=== PATIENT | female | born 1980 | race African-American/Black ===

== ENCOUNTER → 2018-06-14 | Outpatient (CLI) | payer OTHER ==
[~2018-06-14] MED LIST: FERROUS SU325 MG/TAB PO; MOTRIN 600600 MG/TAB PO; NORCO 325 MG-51 TAB PO; PRENATAL1 TA1 PO; ZANTAC 150MG T150 MG PO
== END ==
LOC: COL.RAD 09:00
DX: R74.8 Abnormal levels of other serum enzymes (principal)

== ENCOUNTER → 2020-04-10 | Outpatient (CLI) | payer OTHER | LOC: COL.RAD 07:09 | DX: M47.812 Spondylosis without myelopathy or radiculopathy, cervical region (principal); M79.632 Pain in left forearm ==

== ENCOUNTER → 2020-09-20 | Outpatient (CLI) | payer OTHER | LOC: COL.RAD 08:02 | DX: R74.8 Abnormal levels of other serum enzymes (principal) ==

== ENCOUNTER → 2020-10-04 | Outpatient (CLI) | payer OTHER ==
[~2020-10-04] VITALS: Ht 167.6 cm; Wt 65.5 kg
[2020-10-04] VITALS (8 sets, daily range): BP systolic 120–138; BP diastolic 88–101; PULSE 80–91
[~2020-10-04] MED LIST changes: +NORVASC 5MG5 MG/TAB PO; +PRINIVIL40 MG PO
[2020-10-04 13:26] LABS: INR 1.1 (0.8-3.0); PROTHROMBIN TIME 12.7 SECONDS (9.7-12.8)
== END ==
LOC: COL.RAD 12:40
PROVIDERS: Radiology Diagnostic Radiology
DX: R74.8 Abnormal levels of other serum enzymes (principal)

== ENCOUNTER → 2020-11-20 | Outpatient (CLI) | payer OTHER | LOC: MC.RAD 14:30 | DX: Z12.31 Encounter for screening mammogram for malignant neoplasm of breast (principal) ==

== ENCOUNTER 2020-12-20 10:01 | Day surgery (SDC) | payer OTHER ==
[~2020-12-20] VITALS: Ht 165.1 cm; Wt 65.3 kg
[2020-12-20] MEDS ORDERED: ACTIGALL 300MG300 MG PO (10:43)
[2020-12-20 11:06] VITALS: BP 134/96; PULSE 76; TEMP 97.8
[2020-12-20 12:07] VITALS: BP 120/91; PULSE 71
[2020-12-20 12:15] VITALS: BP 112/89; PULSE 71
--- NOTE | 2020-12-20 12:40 | NUR ---
PT RETURNED FROM ENDO PROCEDURE INTO BAY#2. PT ALERT AND ORIENTATED AND SLEEPY. VSS AND AFEBRILE. PT DENIES PAIN OR NAUSEA AT THIS TIME. ZAIDA CONT TO MONITOR.
--- NOTE | 2020-12-20 13:11 | NUR ---
PT ALERT AND ORIENTATED, SLEEPY. LUNGS CLEAR AND DIMINISHED, HRR, BOWEL SOUNDS PRESENT AND HYPOACTIVE. PT STATES, 'HAVE A RUBBER LIKE TASTE IN MY MOUTH'. DR ORDER FOR FLUIDS TO BEGIN AT 1248. GAVE PT WATER TO SWISH AND SPIT. PT EYES CLOSED WITH NO C/O'S. PT AT BEDSIDE. WILL MARY PROGRESS.
[2020-12-20 13:15] VITALS: BP 123/96; PULSE 65
--- NOTE | 2020-12-20 13:34 | NUR ---
PT AWAKE. DENIES NAUSEA. DOES C/O OF CRAMPING AND RATES IT AT A 5 ON A 0-10 SCALE. STATES, 'GORDY HAD THIS PAIN BEFORE, ITS NO DIFFERENT THAN USUAL. REQUESTED GRAPE JUICE AND SPRITE. PT BURPING TO RELIEVE SELF OF AIR. PT DENIES NEED AT THIS TIME, AT PT SIDE, CALL LIGHT IN REACH.
[2020-12-20 13:45] VITALS: BP 127/89; PULSE 81
--- NOTE | 2020-12-20 14:33 | NUR ---
PT ALERT, ORIENTATED, AWAKE. PT STATES, 'FEELING BETTER, CRAMPING IS THERE BUT NOT BAD NOW.' #20 DC'D TO RIGHT WRIST. PT TOLERATED WELL. DISMISSAL INSTRUCTIONS GIVEN TO PT AND PT . PT VOICES UNDERSTANDING. PT DISMISSED PER WC TO FAMILY VEHICLE, , MEGHAN DRIVING.
== END 2020-12-20 14:10 | disposition home or self-care (01) ==
LOC: SDCO 10:01
DX: K83.01 Primary sclerosing cholangitis (principal); R94.5 Abnormal results of liver function studies; K83.9 Disease of biliary tract, unspecified; Z88.5 Allergy status to narcotic agent; Z88.0 Allergy status to penicillin; U07.1 COVID-19; I10 Essential (primary) hypertension
CPT/HCPCS: C1769; J2250; J2704; J3010; J7030; Q9967

== ENCOUNTER → 2023-08-26 | Outpatient (CLI) | payer OTHER ==
[~2023-08-26] MED LIST changes: +ACTIGALL 300MG300 MG PO
== END ==
LOC: CANSCHCLI → MC.RAD 10:24
DX: Z12.31 Encounter for screening mammogram for malignant neoplasm of breast (principal)